=== PATIENT | female | born 1985 | race Asian ===

== ENCOUNTER 2021-12-25 07:47 | Emergency (ER) | payer MEDICAID ==
[~2021-12-25] VITALS: Ht 157.5 cm; Wt 58.2 kg
[2021-12-25 07:53] VITALS: BP 128/80
--- NOTE | 2021-12-25 08:09 | NUR ---
first contact with pt. presents to ed with lac to left forearm that happened on friday. pt steri-stripped laceration, but has concerns that lac is not closing well. awaiting md panchal.
[2021-12-25] MEDS ORDERED: TETanus/Pertussis (Acell)/Diphther VAC/PF (Tdap-Adult) 0.5ml syringe IMVAC ONE (09:20)
== END 2021-12-25 09:31 | disposition home or self-care (01) ==
LOC: ER 07:48
DX: S51.812A Laceration without foreign body of left forearm, initial encounter (principal); W26.0XXA Contact with knife, initial encounter; Y93.89 Activity, other specified; Y92.89 Other specified places as the place of occurrence of the external cause; Y99.8 Other external cause status
CPT/HCPCS: 90471; 90715; 99283